=== PATIENT | male | born 1995 | race Caucasian/White ===

== ENCOUNTER → 2016-06-06 | Outpatient (CLI) | payer OTHER ==
[~2016-06-06] MED LIST: ASPEC325 PO; ENOX40IN SQ; HYDR-5688 PO; IBUP-1050 PO; KFL500 PO
== END | disposition home or self-care (01) ==
LOC: C.LABSPEC 10:01
PROVIDERS: ATTEND Family Medicine
DX: S81.801A Unspecified open wound, right lower leg, initial encounter (principal); X58.XXXA Exposure to other specified factors, initial encounter

== ENCOUNTER → 2017-01-27 | Outpatient (CLI) | payer OTHER ==
[~2017-01-27] MED LIST changes: -ENOX40IN SQ
--- NOTE | 2017-01-27 08:21 | DIAGNOSTIC IMAGING REPORT ---
LEFT SHOULDER MIN 2 VIEWS CLINICAL HISTORY: Left shoulder pain status post injury. COMPARISON: None FINDINGS: No acute fracture is identified. Bony irregularity along the undersurface of the distal left clavicle suggests previous trauma. Alignment of the left shoulder is anatomic. There is mild osteoarthrosis of the left acromioclavicular joint. IMPRESSION: 1. No acute fracture or dislocation of the left shoulder. 2. Bony excrescence along the undersurface of the distal left clavicle which suggests previous trauma. 3. Minimal osteoarthrosis of the left acromioclavicular joint. Electronically signed by: Michael Dorman M.D. 01/27/2017 8:20 AM Dictated Date/Time: 01/27/2017 8:17 AM
== END | disposition home or self-care (01) ==
LOC: C.RDSM 08:12
PROVIDERS: ATTEND Family Medicine
DX: M19.012 Primary osteoarthritis, left shoulder (principal)

== ENCOUNTER 2017-03-25 14:00 | Emergency (ER) | payer OTHER ==
[~2017-03-25] VITALS: Ht 180.3 cm; Wt 98.1 kg
[2017-03-25 14:04] VITALS: TEMP 36.5; Ht 180.3 cm; Wt 98.1 kg
--- NOTE | 2017-03-25 14:41 | EMERGENCY ROOM VISIT NOTE ---
History First contact with patient: 14:25 Chief Complaint: EYE PAIN Stated Complaint: EYE INJURY History of Present Illness The patient is a 21 year old male who presents to the Emergency Room with complaints of an injury to the left eye. 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 He reports blurred vision in left eye and a mild headache rated a 4/10. He was seen by sports medicine this morning and referred to the furnace cooler. He saw Dr. Campos, who completed a full eye exam and sent the patient here to rule out an orbital floor fracture. The patient denies any other injuries. There was no loss of consciousness. He denies nausea or vomiting. Review of Systems A complete 10 point review of systems was reviewed with the patient with pertinent positives and negatives as per history of present illness. All else were negative. Past Medical/Surgical History Medical Problems: (1) Compartment syndrome (2) No Known Active Medical Problems Surgical Problems: (1) Hx of fasciotomy Social History Smoking Status: Never Smoker Drug Use: none Marital Status: single Housing Status: lives with roommate Occupation Status: [employer] student Physical Exam Vital Signs Date Time Temp Pulse Resp B/P (MAP) Pulse Ox O2 Delivery O2 Flow Rate FiO2 03/25/17 15:21 51 16 120/52 98 Room Air 03/25/17 14:04 36.5 57 18 135/76 99 Room Air Physical Exam VITALS: Vitals are noted on the nurse's note and reviewed by myself. Vital signs stable. GENERAL: This is a 21-year-old male, in no acute distress, nondiaphoretic, well- developed well-nourished. SKIN: There are a few areas of ecchymosis and abrasions surrounding the left eye. HEAD: Normocephalic atraumatic. EARS: External auditory canals clear, tympanic membranes pearly gonzalez without erythema or effusion bilaterally. No hemotympanum. EYES: The left pupil is fixed and dilated. There is conjunctival injection of the left eye. EOMs are intact. MOUTH: Mucous membranes moist. NECK: Supple without nuchal rigidity. Cervical spine is nontender. HEART: Regular rate and rhythm without murmurs gallops or rubs. LUNGS: Clear to auscultation bilaterally without wheezes, rales or rhonchi. MUSCULOSKELETAL: Full range of motion in all extremities. Strength 5/5 throughout. NEURO: Patient was alert and oriented to person place and time. Normal sensation to light and sharp touch. No focal neurological deficits. Medical Decision & Procedures ER Provider Diagnostic Interpretation: HEAD CT NONCONTRAST Findings: The paranasal sinuses and mastoid air cells are clear. The calvarium and skull base are intact. The ventricles and sulci are within normal limits. There is no hematoma, midline shift, or acute infarct. Within the suprasellar region there is an extra-axial 13 x 10 mm lesion which contains a large area of calcification and macroscopic fat. 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 Impression: 1. No acute intracranial abnormality. 2. An extra-axial 13 x 10 mm lesion within the suprasellar location which contains calcification and macroscopic fat. This favors a teratoma. Follow-up nonemergent neurosurgical consultation is recommended. FACIAL BONES-MXILLOFAC WITHOUT IMPRESSION: 1. Mild left premaxillary soft tissue contusion. No acute osseous injury of the face. Specifically, no orbital floor fracture. No orbital injury. Medical Decision Differential diagnosis includes intracranial hemorrhage, concussion, orbital floor fracture, facial fracture, orbital injury, among others. The patient is a 21-year-old male who presents today complaining of left eye injury. He was sent by ophthalmology for CT to rule out facial fracture. CT of the facial bones revealed no orbital floor or other facial bone fractures. The patient has already had a full eye exam and has scheduled follow-up with ophthalmology. 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 I did discuss this finding with the patient. He has been told this in the past after receiving a CT scan for a head injury several years ago. He did see a neurosurgeon in [place] and was told to follow-up in a few years, however he was not able to. The patient plays [employer] a [employer] and does have a team doctor which acts as his primary care provider. I recommended that he follow up with them to arrange follow-up locally regarding this finding. The patient was agreeable to this treatment plan. Head injury precautions were discussed with the patient. He will be cleared before returning to athletic activity. Based on the patient's presentation and work up, I feel the patient is stable for outpatient treatment. The patient was educated to return to the emergency department for any worsening of their current condition or new/concerning symptoms. He will follow up with his primary care provider. Medication Reconcilliation Current Medication List: was personally reviewed by me Blood Pressure Screening Patient's blood pressure: Normal blood pressure Impression Primary Impression: Contusion of orbital tissues Departure Information Dispostion Home / Self-Care Condition GOOD Referrals No Doctor, Assigned (PCP) Sebastian Dixon M.D. Patient Instructions My [facility] Additional Instructions You have been treated in the Emergency Department for a Closed Head Injury. CT Scan of your head/brain demonstrated no acute bleeding. However, there was a small mass which appears to be benign (noncancerous) identified on the scan. This is likely the same area which she saw a specialist before in the past. You have been provided with the information for a local neurologist for follow- up. You may need to see a neurosurgeon as well. For pain control, you can use the following [id number] medicines (if >12 yo): - Regular strength (325mg/tab) Tylenol (acetaminophen) 2 tabs every 4-6 hours as needed. Do not exceed 12 tablets in a 24 hour period. Avoid taking more than 4 grams (4000 mg) of Tylenol per day. This includes any other sources of acetaminophen you may take on a regular basis. - Regular strength (200 mg/tab) Advil (ibuprofen) 1-2 tabs every 4-6 hours as needed. Do not exceed a dose of 3200 mg per day. You should relax in a quiet, dark place for the rest of the day. Avoid any possible triggers including: cigarette smoke, caffeine, nicotine, chocolate, wine, beer, loud noises or music, or bright lights. You should NOT return to athletic play until reevaluated by your Design Engineer. You should fully comply with their standard protocol regarding head injuries. Your Design Engineer OR Primary Care Provider will have the final say in your return to athletic play. This timeframe should be AT LEAST 1 week AFTER the date of last symptoms experienced! This is ESSENTIAL to allow for adequate brain healing time and for reduced risk of re-injury. Follow-up with your furnace cooler as scheduled. Return to the Emergency Department if your current symptoms worsen despite treatment course outlined above, or if you develop any of the following symptoms : intractable pain despite aforementioned treatment course, visual disturbances , loss of vision, unilateral weakness or facial drooping, slurring of speech, loss of coordination, or loss of consciousness. Problem Qualifiers Primary Impression: Contusion of orbital tissues Encounter type: initial encounter Laterality: left Qualified Codes: S05.12XA - Contusion of eyeball and orbital tissues, left eye, initial encounter
--- NOTE | 2017-03-25 14:50 | DIAGNOSTIC IMAGING REPORT ---
HEAD CT NONCONTRAST CT DOSE: HISTORY: head injury, left eye injury TECHNIQUE: Multiaxial CT images of the head were performed without the use of intravenous contrast. Automated exposure control was utilized for this study. A dose lowering technique was utilized adhering to the principles of ALARA. Comparison: None. Findings: The paranasal sinuses and mastoid air cells are clear. The calvarium and skull base are intact. The ventricles and sulci are within normal limits. There is no hematoma, midline shift, or acute infarct. Within the suprasellar region there is an extra-axial 13 x 10 mm lesion which contains a large area of calcification and macroscopic fat. 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 Impression: 1. No acute intracranial abnormality. 2. An extra-axial 13 x 10 mm lesion within the suprasellar location which contains calcification and macroscopic fat. This favors a teratoma. Follow-up nonemergent neurosurgical consultation is recommended. Electronically signed by: Jga Newman M.D. 03/25/2017 2:49 PM Dictated Date/Time: 03/25/2017 2:44 PM
--- NOTE | 2017-03-25 14:52 | DIAGNOSTIC IMAGING REPORT ---
FACIAL BONES-MXILLOFAC WITHOUT CLINICAL HISTORY: 21 years-old Male presenting with head injury, left eye injury, concern for orbital floor fx. TECHNIQUE: Multidetector CT of the face was performed without the use of intravenous contrast. IV contrast: None. A dose lowering technique was used consistent with the principles of ALARA (as low as reasonably achievable). COMPARISON: None. CT DOSE (mGy.cm): The estimated cumulative dose is 835.32 mGy.cm. FINDINGS: Bible Worker topogram: Unremarkable. Mild infiltration of the left premaxillary subcutaneous tissue suggesting mild contusion. Orbits intact. No post septal fat infiltration. Remaining soft tissues of the face within normal limits allowing for noncontrast technique. Minimal mucosal thickening in the left maxillary sinus. 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 Mandible intact. No other fracture identified. Specifically, no orbital floor fracture. Rightward deviation of the bony nasal septum. Upper cervical spine normal. IMPRESSION: 1. Mild left premaxillary soft tissue contusion. No acute osseous injury of the face. Specifically, no orbital floor fracture. No orbital injury. Electronically signed by: Logan Benjamin M.D. 03/25/2017 2:51 PM Dictated Date/Time: 03/25/2017 2:44 PM
[2017-03-25 15:21] VITALS: BP 120/52; PULSE 51; O2SAT 98
== END 2017-03-25 15:25 | disposition home or self-care (01) ==
LOC: C.EDB 14:02 → C.EDD 15:25
DX: S05.12XA Contusion of eyeball and orbital tissues, left eye, initial encounter (principal); W50.0XXA Accidental hit or strike by another person, initial encounter; Y93.63 Activity, rugby; S00.212A Abrasion of left eyelid and periocular area, initial encounter; G93.0 Cerebral cysts